=== PATIENT | female | born 1990 | race Asian ===

== ENCOUNTER → 2021-01-06 | Outpatient (CLI) | payer OTHER | END | disposition home or self-care (01) | LOC: LABPV 11:18 | PROVIDERS: ATTEND Internal Medicine | DX: Z02.1 Encounter for pre-employment examination (principal) | CPT/HCPCS: 86706 ==

== ENCOUNTER 2022-02-05 08:39 | Emergency (ER) | payer SELFPAY ==
[~2022-02-05] VITALS: Ht 160 cm; Wt 52.3 kg
[2022-02-05] MEDS ORDERED: IBUPROFEN 400 MG TABLET PO ONE (10:00)
[2022-02-05 10:28] VITALS: BP 122/70
== END 2022-02-05 10:29 | disposition home or self-care (01) ==
LOC: EMS 08:46
DX: S40.021A Contusion of right upper arm, initial encounter (principal); S70.11XA Contusion of right thigh, initial encounter; V49.50XA Passenger injured in collision with unspecified motor vehicles in traffic accident, initial encounter; Y93.89 Activity, other specified; Y92.89 Other specified places as the place of occurrence of the external cause; Y99.8 Other external cause status
CPT/HCPCS: 99283